=== PATIENT | male | born 1980 ===

== ENCOUNTER 2023-12-08 18:38 | Outpatient (REF) | payer BC, SELFPAY ==
[2023-12-08 22:06] LABS: ALT 66 U/L (16-63); AST 44 U/L (15-37); Albumin 4.2 g/dL (3.4-5.0); Alkaline Phosphatase 70 U/L (46-116); BUN 16 mg/dL (7-18); Bilirubin, Total 0.67 mg/dL (0.2-1.0); CREATININE 1.1 mg/dL (0.70-1.30); Calcium 9.5 mg/dL (8.5-10.1); Chloride 105 mmol/L (98-107); Cholesterol 161 mg/dL (<200); Estimated GFR 85.42 (mL/min/1.73m2); Glucose 238 mg/dL (74-106); HDL Cholesterol 30 mg/dL (40-60); Potassium 3.7 mmol/L (3.5-5.1); Sodium 142 mmol/L (136-145); Total Protein 7.9 g/dL (6.4-8.2); Triglyceride 570 mg/dL (<150)
[2023-12-08 22:18] LABS: LDL CHOLESTEROL 59 mg/dL (<100)
[2023-12-10 12:16] LABS: Hemoglobin A1C 7.4 % (<5.7)
== END 2023-12-08 18:39 | disposition home or self-care (01) ==
LOC: NCHCN 18:38
PROVIDERS: Visit Provider Family Medicine
DX: E78.2 Mixed hyperlipidemia (principal); R73.03 Prediabetes
CPT/HCPCS: 80053; 80061; 83721; 83036

== ENCOUNTER 2024-03-23 17:01 | Outpatient (REF) | payer BC, SELFPAY ==
[2024-03-23 21:45] LABS: COMMENT (LAB VIEW ONLY) 142.17 mg/dL
[2024-03-23 21:49] LABS: Microalb ug/mg Crea 158.1 ug/mg Cr
== END 2024-03-23 17:02 | disposition home or self-care (01) ==
LOC: NCHCN 17:01
PROVIDERS: Visit Provider Family Medicine
DX: E11.9 Type 2 diabetes mellitus without complications (principal)
CPT/HCPCS: 82043; 82570

== ENCOUNTER 2024-06-14 12:59 | Outpatient (REF) | payer BC, SELFPAY ==
[2024-06-14 14:30] LABS: ALT 39 U/L (16-63); AST 30 U/L (15-37); Albumin 4.1 g/dL (3.4-5.0); Alkaline Phosphatase 56 U/L (46-116); Anion Gap 5.6 mmol/L (3-11); BUN 14 mg/dL (7-18); Bilirubin, Total 0.55 mg/dL (0.2-1.0); CO2 28.4 mmol/L (21.0-32.0); CREATININE 1.2 mg/dL (0.70-1.30); Calcium 9.3 mg/dL (8.5-10.1); Calculated LDL 46 mg/dL (<100); Chloride 109 mmol/L (98-107); Cholesterol 107 mg/dL (<200); Estimated GFR 76.48 (mL/min/1.73m2); Glucose 117 mg/dL (74-106); HDL Cholesterol 31 mg/dL (40-60); Potassium 4.4 mmol/L (3.5-5.1); Sodium 143 mmol/L (136-145); Total Protein 7.5 g/dL (6.4-8.2); Triglyceride 150 mg/dL (<150)
== END 2024-06-14 13:00 | disposition home or self-care (01) ==
LOC: NCHCN 12:59
PROVIDERS: PCP Family Medicine; Visit Provider Family Medicine
DX: I10 Essential (primary) hypertension (principal); R73.03 Prediabetes; E78.2 Mixed hyperlipidemia
CPT/HCPCS: 80053; 80061; 83036